=== PATIENT | male | born 1945 | race Caucasian/White ===

== ENCOUNTER → 2016-12-06 | Outpatient (CLI) | payer OTHER | LOC: RAD 12:06 | DX: R05 Cough (principal) ==

== ENCOUNTER → 2017-12-14 | Outpatient (CLI) | payer OTHER | LOC: CAT 09:30 | DX: J34.89 Other specified disorders of nose and nasal sinuses (principal); J44.9 Chronic obstructive pulmonary disease, unspecified ==

== ENCOUNTER → 2018-06-29 | Outpatient (CLI) | payer OTHER ==
[~2018-06-29] VITALS: Ht 172.7 cm; Wt 95.3 kg
[~2018-06-29] MED LIST: DYMISTA NASAL S23 GM NASAL; NEXIUM40 MG PO
--- NOTE | ~2018-06-29 | P ---
[facility] [place] [address] PROCEDURE REPORT Name: CHRIS PRICE Room #: REG [facility].#: [id number] Admission: 06/29/18 Attend Phys: Clint Phillips MD Discharge: Date of : 43 Report #: [id number] THIS REPORT FOR: //name// CC: Rakesh Antonio DO Clint Phillips BRIEF HISTORY: The patient is a 72-year-old male known to me with history of reflux disease. He has been taking Nexium 40 mg twice daily. Reports, he is having increasing symptoms. He has had intermittent solid food dysphagia and he has had previous esophageal dilation for that problem. PREOPERATIVE DIAGNOSIS: Worsening reflux symptoms and dysphagia. POSTOPERATIVE DIAGNOSES: 1. Grade A erosive esophagitis. 2. A small 2 cm sliding type hiatus hernia. 3. Intermittently seen Schatzki ring. 4. Moderately diffuse gastritis without ulceration. MEDICATIONS: Deep sedation with propofol per Anesthesia. SPECIMEN: Biopsies of gastritis. ESTIMATED BLOOD LOSS: 3 mL. PROCEDURE: EGD with biopsy, Barrett dilation. FINDINGS: Prior to propofol sedation, procedure of upper endoscopy discussed with the patient as well as potential risks and its complications. He indicates he understands and desires to proceed. DESCRIPTION OF PROCEDURE: With the patient in left decubitus position, the Olympus video endoscope was inserted in cervical esophagus under direct vision without difficulty. Examination of this organ through its entire length revealed normal esophageal mucosa down the squamocolumnar junction. At the level of squamocolumnar junction, he has a couple of small erosions limited to squamocolumnar junction. This is significant in view of the fact he is taking PPI. No strictures or masses were seen. Intermittently, a mild Schatzki ring was seen. Also, intermittently a 2 cm or less a sliding type hiatus hernia was noted. Scope was advanced in the stomach, was examined on end view as well as retroflexed views. He had moderate to severe erythematous antral gastritis with multiple prominent striations in the antrum. No ulcers were seen. The mucosa was intact. Upon retroflexion, no mass lesions were seen. The hiatus hernia was seen. The pylorus, duodenal bulb, and postbulbar duodenal sweep were all inspected and noted to be unremarkable. At that point, scope was slowly withdrawn and careful circumferential views were obtained and confirmed the [facility] [address] [place] [address] PROCEDURE REPORT Name: CHRIS PRICE Lasha Room #: REG JUANA Gaines#: [id number] Admission: 06/29/18 Attend Phys: Clint Phillips MD Discharge: Date of : 43 Report #: [id number] above findings. The patient tolerated the procedure well. Biopsies obtained of the gastritis. Following procedure, he was dilated with passage of 52-Martiniquais Barrett dilator. There was no resistance. CONDITION OF THE PATIENT UPON DISCHARGE: Following the procedure, the patient was drowsy. He is prepared for colonoscopy. INSTRUCTIONS TO THE PATIENT AND FAMILY AT THE TIME OF DISCHARGE: We will have him change his Nexium to Dexilant 60 mg daily. If he is not having improvement in symptoms, he should return to the office for followup. He should return for dilation of esophagus on an as-needed basis due to recurrence symptoms of dysphagia. He will otherwise follow up with Dr. Rakesh Antonio. By: [id number] Clint Phillips MD /nt
--- NOTE | ~2018-06-29 | P ---
[facility] [place] [address] PROCEDURE REPORT Name: CHRIS PRICE Room #: REG [facility]#: [id number] Admission: 06/29/18 Attend Phys: Clint Phillips MD Discharge: Date of : 43 Report #: [id number] THIS REPORT FOR: //name// CC: Rakesh Antonio DO Clint Phillips BRIEF HISTORY: The patient is a 72-year-old male with a history of multiple colon adenomas in the past. He presents today for high risk screening colonoscopy due to history of multiple colon adenomas. PREOPERATIVE DIAGNOSIS: High risk screening colonoscopy. POSTOPERATIVE DIAGNOSES: 1. Multiple colon polyps. 2. Moderately severe left-sided diverticulosis coli. 3. Moderate internal hemorrhoids. MEDICATIONS: Deep sedation with propofol per anesthesia. SPECIMENS: 1. Diminutive polyp, mid transverse colon x 2. 2. Diminutive polyp, cecum x 3. ESTIMATED BLOOD LOSS: 3 mL. PROCEDURE: Colonoscopy to cecum and terminal ileum with biopsy. FINDINGS: Prior to propofol sedation, procedure of colonoscopy discussed with the patient as well as potential risks and its complications. He indicates he understands and desires to proceed. DESCRIPTION OF PROCEDURE: With the patient in left lateral decubitus position, digital examination was completed, which revealed no abnormalities. Subsequently, the Olympus video colonoscope was introduced in the rectum, advanced under direct vision to the cecum. Done with minimal difficulty. The cecum was identified by the ileocecal valve and the appendiceal orifice. I was able to visualize the distal segment of the terminal ileum, which was inspected and noted to be unremarkable. At that point, the scope was slowly withdrawn and careful circumferential views were obtained including retroflexion of the scope in the ascending colon. Upon slow withdrawal of the scope, the prep was excellent. Mucosa was within normal limits, normal vascular pattern, normal light reflex. In the cecum, 3 diminutive polyps were seen and removed with biopsy forceps. The scope was further withdrawn in the mid ascending colon, 2 diminutive polyps were seen and removed with biopsy forceps. The scope was withdrawn through the remainder of the colon and no additional polyps were seen. The mucosa was normal through the remainder of the colon. However, in the left [facility] [address] [place] [address] PROCEDURE REPORT Name: CHRIS PRICE Lasha Room #: REG [facility].#: [id number] Admission: 06/29/18 Attend Phys: Clint Phillips MD Discharge: Date of : 43 Report #: [id number] colon he was noted to have mfxyieqn-qz-nnrini diverticular disease without endoscopic evidence of diverticulitis. Scope was withdrawn in the rectum and no abnormalities were seen. However, upon retroflexion, he was found to have moderate internal hemorrhoids. Scope withdrawn, the patient tolerated the procedure well. CONDITION OF THE PATIENT UPON DISCHARGE: Following procedure, the patient drowsy, aroused, conversant and will be discharged home when ambulatory. INSTRUCTIONS TO THE PATIENT AND FAMILY AT THE TIME OF DISCHARGE: A total of 5 polyps were identified and removed today. He has had at least 5 adenomas in the past. We will follow up on the path and make further recommendations. If 3 or more polyps are adenomas, he should return in 3 years; otherwise, he is to return for followup colonoscopy in 5 years. His last colonoscopy was in 04/2015. Withdrawal time from the cecum was 13 minutes and 5 seconds. By: 0945 1333 Clint Phillips MD /nt
--- NOTE | 2018-07-03 08:08 | PATH ---
[facility] [address] [place] [address] PATHOLOGY RPT PROCEDURE Name: CHRIS PRICE Room #: REG JUANA M.R.#: [id number] Admission: 06/29/18 Date of : 43 Discharge: Report #: [id number] Path Case #: [id number] [facility] Accession Number: [id number] . 01 Material submitted: . PART A: BX GASTRITIS PART B: BX POLYP AT MID TRANSVERSE COLON X2 PART C: BX POLYP AT CECUM X3 . 01 Clinical history: . Pre-OP DX: Hx polyps, GERD Post-OP DX: Schatzki's ring, gastritis, esophagitis, hiatal hernia, colon polyps, diverticulosis, hemorrhoids A. R/O H. pylori . 02 Diagnosis: A. Gastric mucosa, gastritis rule out H. pylori, endoscopic biopsy: - Mild reactive gastropathy. - Negative for intestinal metaplasia or atrophy. - Negative for Helicobacter pylori (properly controlled immunohistochemical stain performed). . B. Polyp x 2, mid transverse colon, endoscopic biopsy: - Both fragments showing tubular adenoma. - Negative for high grade dysplasia. . C. Polyp, at cecum, endoscopic biopsy: - Tubular adenoma. - Negative for high grade dysplasia. (IUV/db; 06/30/2018) LBQ/06/30/2018 . 02 Electronically signed: . Bharati Mccloud MD, Pathologist NPI- [id number] . 01 Gross description: . A. Received in formalin labeled "Ring, Chris, BX gastritis," are 4 segments of benavides soft tissue measuring 1.5 x 0.9 x 0.2 cm in aggregate dimensions and ranging from 0.3 to 0.5 cm in maximum dimension. The specimen is submitted entirely in cassette A1. . B. Received in formalin labeled "Ring, [place], BX polyp at mid transverse colon x2," are 2 segments of benavides soft tissue measuring 0.5 x 0.2 x 0.2 cm in aggregate dimensions and ranging from 0.2 to 0.3 cm in maximum dimension. The specimen is submitted entirely in cassette [place] [address] PATHOLOGY RPT PROCEDURE Name: IZABELA PRICEER R Room #: REG JUANA [facility].#: [id number] Admission: 06/29/18 Date of : 43 Discharge: Report #: [id number] Path Case #: [id number] C. Received in formalin labeled "Ring, [place], BX polyp at cecum," are 5 segments of benavides soft tissue measuring 2.0 x 1.0 x 0.2 cm in aggregate dimensions and ranging from 0.3 to 0.5 cm in maximum dimension. The specimen is submitted entirely in cassette C1. (TSD; 06/29/2018) TOB/TOB . 02 Pathologist provided ICD-10: K31.9, D12.3, D12.0 . 02 CPT . 894376, 886882, 152782, V88751 Specimen Comment: A courtesy copy of this report has been sent to Specimen Comment: [phone], . Specimen Comment: Report sent to / DR GONZALES Performed at: [address], [place] [id number] MD Roger Arizmendi MD Phone: [phone] Performed at: [address] [id number] MD Bharati Mccloud MD Phone: [phone]
== END | disposition home or self-care (01) ==
LOC: GI 06:40
DX: Z12.11 Encounter for screening for malignant neoplasm of colon (principal); Z86.010 Personal history of colon polyps; D12.0 Benign neoplasm of cecum; D12.3 Benign neoplasm of transverse colon; K31.9 Disease of stomach and duodenum, unspecified; K57.30 Diverticulosis of large intestine without perforation or abscess without bleeding; K64.8 Other hemorrhoids; K29.70 Gastritis, unspecified, without bleeding; K22.2 Esophageal obstruction; K21.0 Gastro-esophageal reflux disease with esophagitis; K44.9 Diaphragmatic hernia without obstruction or gangrene; Z91.041 Radiographic dye allergy status; Z79.899 Other long term (current) drug therapy
CPT/HCPCS: 62110; 62900

== ENCOUNTER → 2018-06-30 | Outpatient (CLI) | payer OTHER | LOC: ULTRA 10:53 | DX: K80.20 Calculus of gallbladder without cholecystitis without obstruction (principal); K76.0 Fatty (change of) liver, not elsewhere classified ==

== ENCOUNTER 2018-07-12 05:58 | Day surgery (SDC) | payer OTHER ==
[~2018-07-12] VITALS: Ht 172.7 cm; Wt 94.3 kg
[~2018-07-12 05:58] MED LIST changes: +DEXILANT60 MG PO
[2018-07-12 09:03] LABS: HEMATOCRIT 44.2 % (42.0-52.0); HEMOGLOBIN 14.7 gm/dL (14.0-18.0)
--- NOTE | 2018-07-12 09:48 | EKG ---
[place] [address] [facility] [employer] [place] [address] ELECTROCARDIOGRAM REPORT Name: CHRIS PRICE Room #: [address] [place] [address].#: [id number] ������������������ Admission: 07/12/18 ������������������ Attend Phys: Jc Alberts Discharge: ������������������ Date of : 43 Report #: [id number] ����������������������������������������������������������������� [id number] THIS REPORT FOR: //name// [facility] Test Date: 2018-07-12 Test Time: 08:52:40 Pat Name: CHRIS PRICE Department: Room: [facility] 3 Gender: M Neurophysiologist: IRENE : 1945 Requested By: Jc Gutiérrez Order Number: [id number] MD: Delio Bettencourt Measurements Intervals Bradshaw Rate: 68 P: 2 MT: 174 QRS: -49 QRSD: 89 T: 21 QT: 381 QTc: 406 Interpretive Statements Sinus rhythm Left anterior fascicular block Low voltage, extremity leads Abnormal R-wave progression, late transition Compared to ECG 02/22/2006 09:52:30 No significant change was found Electronically Signed On 07-12-2018 9:47:48 COLLAR POINTER by Delio Bettencourt [email or web address] ��������������������������������������������� <ELECTRONICALLY SIGNED> ���������������������������������������� By: Delio Bettencourt MD, [facility] ��������������������������������������������� 07/12/18 0947 [id number] Delio Bettencourt MD, [facility] /EPI
[2018-07-12] MEDS ORDERED: NORCO 5-325 TA1 EACH PO (12:09)
[2018-07-12] MEDS ORDERED: ONDANSETRON HCL4 M2 PO (12:09)
[2018-07-12] MEDS ORDERED: MIRALAX17 GM PO (12:09)
== END 2018-07-12 14:25 | disposition home or self-care (01) ==
LOC: OR 05:58 → TBA 05:59 → OR 12:48
PROVIDERS: Surgery
DX: K80.00 Calculus of gallbladder with acute cholecystitis without obstruction (principal); K21.9 Gastro-esophageal reflux disease without esophagitis; Z90.49 Acquired absence of other specified parts of digestive tract; Z98.890 Other specified postprocedural states; Z98.41 Cataract extraction status, right eye; Z98.42 Cataract extraction status, left eye; Z79.899 Other long term (current) drug therapy; Z87.19 Personal history of other diseases of the digestive system; Z96.691 Finger-joint replacement of right hand; Z91.041 Radiographic dye allergy status; Z79.891 Long term (current) use of opiate analgesic; Z87.891 Personal history of nicotine dependence
CPT/HCPCS: 50010; 50101; 50249; 50411; 50555; 50558; 50962; 51489; 51975; 52265; 53307; 53310; 54022; 54118; 55245; 55317; 56462; 56525; 56526; 62110; 62900; 70005

== ENCOUNTER → 2018-08-15 | Outpatient (CLI) | payer OTHER ==
[~2018-08-15] MED LIST changes: +MIRALAX17 GM PO; +NORCO 5-325 TA1 EACH PO; +ONDANSETRON HCL4 M2 PO
== END ==
LOC: CAT 15:04
DX: Z13.6 Encounter for screening for cardiovascular disorders (principal); E78.00 Pure hypercholesterolemia, unspecified; I25.10 Atherosclerotic heart disease of native coronary artery without angina pectoris

== ENCOUNTER → 2019-12-12 | Outpatient (CLI) | payer OTHER | LOC: SJCVC 12:16 | PROVIDERS: ATTEND Internal Medicine Cardiovascular Disease | DX: R93.1 Abnormal findings on diagnostic imaging of heart and coronary circulation (principal); E78.00 Pure hypercholesterolemia, unspecified; G47.33 Obstructive sleep apnea (adult) (pediatric); J44.9 Chronic obstructive pulmonary disease, unspecified; K21.9 Gastro-esophageal reflux disease without esophagitis; Z79.899 Other long term (current) drug therapy; Z82.49 Family history of ischemic heart disease and other diseases of the circulatory system; Z87.891 Personal history of nicotine dependence ==

== ENCOUNTER → 2020-01-10 | Outpatient (CLI) | payer OTHER | LOC: RAD 09:08 | PROVIDERS: ATTEND Pediatrics | DX: R06.02 Shortness of breath (principal) ==

== ENCOUNTER 2021-01-01 15:34 | Emergency (ER) | payer OTHER, MEDICARE ==
[~2021-01-01] VITALS: Ht 172.7 cm; Wt 97.5 kg
[2021-01-01] MEDS ORDERED: DOXYCYCLINE 10100 MG PO (19:08)
[2021-01-01 19:16] VITALS: BP 136/73
[2021-01-02] MEDS ORDERED: NEXIUM40 M2 PO (20:30)
== END 2021-01-01 19:16 | disposition home or self-care (01) ==
LOC: ER 15:34
DX: U07.1 COVID-19 (principal); R05 Cough; R06.02 Shortness of breath; Z90.49 Acquired absence of other specified parts of digestive tract; Z90.89 Acquired absence of other organs; Z98.890 Other specified postprocedural states; K21.9 Gastro-esophageal reflux disease without esophagitis; Z79.891 Long term (current) use of opiate analgesic; Z79.899 Other long term (current) drug therapy; Z91.041 Radiographic dye allergy status; Z91.013 Allergy to seafood; Z87.891 Personal history of nicotine dependence

== ENCOUNTER 2021-01-01 22:08 | Inpatient (IN) | payer OTHER, MEDICARE ==
[~2021-01-01] VITALS: Ht 172.7 cm; Wt 90.0 kg
[~2021-01-01 22:08] MED LIST changes: +DOXYCYCLINE 10100 MG PO
[2021-01-01 22:09] VITALS: BP 116/69
[2021-01-01 22:29] LABS: HEMATOCRIT 40.1 % (42.0-52.0); HEMOGLOBIN 13.2 gm/dL (14.0-18.0); MCH 27.9 pg (26.0-34.0); MCHC 32.8 g/dL (28.0-37.0); MCV 84.8 fL (80.0-100.0); PLATELET COUNT 190 thou/uL (150-400); RBC 4.73 mil/uL (4.50-6.00); RDW 14.9 % (10.5-14.5); WBC 10.7 thou/uL (4.0-11.0)
[2021-01-01 22:42] LABS: ANION GAP 9 mmol/L (7-16); BUN 17 mg/dL (7-18); CALCIUM 8.3 mg/dL (8.5-10.1); CHLORIDE 100 mmol/L (98-107); CO2 27 mmol/L (21-32); CREATININE 1.1 mg/dL (0.7-1.3); GLUCOSE 103 mg/dL (74-106); POTASSIUM 4.2 mmol/L (3.5-5.1); SODIUM 136 mmol/L (136-145)
[2021-01-01 22:52] LABS: ALBUMIN 3.2 g/dL (3.4-5.0); SGOT 50 U/L (15-37); SGPT 58 U/L (30-65); TOTAL BILIRUBIN 0.5 mg/dL (0.2-1.0); TROPONIN-I <0.06 ng/mL (<0.06)
[2021-01-01 23:52] LABS: ABSOLUTE NEUTROPHILS 8.8 thou/uL (1.4-8.2); METAMYELOCYTES 1 %; NUCLEATED RBCS 1 /100WBC
[2021-01-02] VITALS (11 sets, daily range): BP systolic 110–141; BP diastolic 63–84
--- NOTE | 2021-01-02 04:17 | NUR ---
PT TRANSFERRED INTO ROOM 23 AT APPROXIMATELY 0130. ALERT AND ORIENT TIMES THREE. 3-4 LITERS OF OXYGEN PER NASAL CANULA. VVS, AFEBRILE. ABLE TO TRANSFER WITH SBA. REQUESTED SLEEP AID, RR ONLY 7, NO SLEEP AID WAS GIVEN. SR/SB PER MONITOR. COVID + PROTOCOL FOLLOWED. WILL CONTINUE TO MONITOR.
--- NOTE | 2021-01-02 17:41 | NUR ---
75 year old male presents to the ED on 01-02-21 with worsening cough and shortness of breath. Pt was diagnosed with Covid . Pt is fully vaccinated against Covid with [employer]. ID NOW in the ED reveals positive. He does have history of lung disease and uses an albuterol as needed, states he's used it about twice per day recently. Prior to this illness he had not needed it for probably 8-9 months. Does not use an inhaled steroid. The patient has been admitted with Acute hypoxic respiratory failure, COVID-19 pneumonia, GERD/IBS, and MIGUEL. At present the patient is on 5L via NC and maintain 02 sats over 92%. Per ED nursing patient is able to transfer with SBA. CM did request a PT/OT evaluation while in the ED. The patient currently lives at home with his Arturo at [phone] or [phone]. Anticipate once medical assessments completed and plan of care is established that patient may be able to discharge home with spouse and have asked that internal medicine place an order for PT/OT to evaluate as O2 evaluation will require a RT assessment of a rest and exercise oximetry to determine any 02 needs at discharge. CM will continue to follow for discharge needs.
[2021-01-02] MEDS ORDERED: NEXIUM40 M2 PO (20:30)
[2021-01-02 21:47] LABS: ABSOLUTE NEUTROPHILS 6.1 thou/uL (1.4-8.2); BASOPHILS 0.1 % (0.0-2.0); HEMATOCRIT 40.6 % (42.0-52.0); HEMOGLOBIN 13.5 gm/dL (14.0-18.0); LYMPHOCYTES 7.7 % (24.0-44.0); MCH 28.2 pg (26.0-34.0); MCHC 33.2 g/dL (28.0-37.0); MCV 84.9 fL (80.0-100.0); MONOCYTES 8.2 % (1.0-8.0); PLATELET COUNT 201 thou/uL (150-400); RBC 4.79 mil/uL (4.50-6.00); RDW 14.7 % (10.5-14.5); WBC 7.2 thou/uL (4.0-11.0)
[2021-01-03 00:17] VITALS: BP 119/74
[2021-01-03 04:56] VITALS: BP 153/129
[2021-01-03 05:12] LABS: ABSOLUTE NEUTROPHILS 5.4 thou/uL (1.4-8.2); BASOPHILS 0.1 % (0.0-2.0); HEMATOCRIT 39.8 % (42.0-52.0); HEMOGLOBIN 13.8 gm/dL (14.0-18.0); LYMPHOCYTES 11.8 % (24.0-44.0); MCH 29.1 pg (26.0-34.0); MCHC 34.7 g/dL (28.0-37.0); MCV 84.1 fL (80.0-100.0); MONOCYTES 8.9 % (1.0-8.0); PLATELET COUNT 209 thou/uL (150-400); POLYS 79.2 % (36.0-66.0); RBC 4.73 mil/uL (4.50-6.00); RDW 14.7 % (10.5-14.5); WBC 6.8 thou/uL (4.0-11.0)
[2021-01-03 05:26] LABS: INR 1.14; PROTIME 12.4 Seconds (10.5-12.1)
[2021-01-03 05:41] LABS: ALBUMIN 2.9 g/dL (3.4-5.0); CALCIUM 7.9 mg/dL (8.5-10.1); POTASSIUM 4.3 mmol/L (3.5-5.1); TOTAL BILIRUBIN 0.5 mg/dL (0.2-1.0); TOTAL PROTEIN 6.4 g/dL (6.4-8.2)
[2021-01-03 05:47] LABS: DIRECT BILIRUBIN 0.1 mg/dL (<0.1-0.2); PHOSPHORUS 3.7 mg/dL (2.5-4.9)
--- NOTE | 2021-01-03 07:40 | NUR ---
PROGRESS PT A/O X4 UP AD ZAINAB IV ON 4 LITERS O2 SATS IN MID 90'S. SL TO RF AND RAC FLUSHES WITHOUT DIFFICULTY. MEDS GIVEN ORDERED NO SIDE EFFECTS NOTED FROM BARICITINIB PT INFORMATION SHEET PROVIDED AND REVIEWED, VOIDING QS CONTINUE POC.
[2021-01-03 08:00] VITALS: BP 114/68
[2021-01-03 15:53] VITALS: BP 112/71
--- NOTE | 2021-01-03 18:12 | NUR ---
PT WAS UP IN CHAIR MOST OF THE DAY WHILE ON 9L 02 AT 93%. VSS. PT VOIDS VIA URINAL. FOLLOWING COVID POC.
[2021-01-03 20:29] VITALS: BP 124/84
[2021-01-04 03:42] VITALS: BP 117/58
[2021-01-04 05:08] LABS: ABSOLUTE NEUTROPHILS 5.3 thou/uL (1.4-8.2); BASOPHILS 0.1 % (0.0-2.0); HEMOGLOBIN 13.4 gm/dL (14.0-18.0); LYMPHOCYTES 14.8 % (24.0-44.0); MCH 28.1 pg (26.0-34.0); MCHC 33.5 g/dL (28.0-37.0); MCV 83.8 fL (80.0-100.0); MONOCYTES 12.9 % (1.0-8.0); PLATELET COUNT 253 thou/uL (150-400); POLYS 72.2 % (36.0-66.0); RBC 4.78 mil/uL (4.50-6.00); RDW 14.4 % (10.5-14.5); WBC 7.3 thou/uL (4.0-11.0)
[2021-01-04 05:36] LABS: ALBUMIN 2.7 g/dL (3.4-5.0); CALCIUM 8.2 mg/dL (8.5-10.1); CREATININE 0.9 mg/dL (0.7-1.3); DIRECT BILIRUBIN 0.1 mg/dL (<0.1-0.2); PHOSPHORUS 3.6 mg/dL (2.5-4.9); POTASSIUM 4.2 mmol/L (3.5-5.1); TOTAL BILIRUBIN 0.4 mg/dL (0.2-1.0); TOTAL PROTEIN 6.4 g/dL (6.4-8.2)
[2021-01-04 08:00] VITALS: BP 114/78
[2021-01-04 12:35] VITALS: BP 108/63
[2021-01-04 16:00] VITALS: BP 123/85
--- NOTE | 2021-01-04 17:33 | NUR ---
PT REQUESTED NAUSEA MEDICATION X2 OVER SHIFT. IVPB ANTIBIOTICS PER POC. 9L TO MAINTAIN 02 SATURATION. SPOKE TO PT TODAY AND ANSWERED HER QUESTIONS.
[2021-01-04 19:12] VITALS: BP 121/67
--- NOTE | 2021-01-04 19:53 | NUR ---
PT RESTING IN BED WATCHING TV TALKING ON PHONE. REPORTS HEADACHE CONTINUED AND PROVIDED COFFEE. PRN FOR SLEEP WILL BE PROVIDED. PT REPORTING GAS AND BELCHING. LUNGS WITH CRACKLES LOWER BASES. O2 15L NC. FLUSHED SKIN TONE. CALLS FOR ASSISTANCE NEEDED.
[2021-01-05 04:39] VITALS: BP 128/67
[2021-01-05 05:27] LABS: ABSOLUTE NEUTROPHILS 5.4 thou/uL (1.4-8.2); BASOPHILS 0.1 % (0.0-2.0); HEMATOCRIT 40.7 % (42.0-52.0); HEMOGLOBIN 13.5 gm/dL (14.0-18.0); LYMPHOCYTES 12.5 % (24.0-44.0); MCH 27.9 pg (26.0-34.0); MCHC 33.1 g/dL (28.0-37.0); MCV 84.3 fL (80.0-100.0); MONOCYTES 9.7 % (1.0-8.0); PLATELET COUNT 283 thou/uL (150-400); POLYS 77.7 % (36.0-66.0); RBC 4.83 mil/uL (4.50-6.00); RDW 14.9 % (10.5-14.5)
[2021-01-05 05:33] LABS: ALBUMIN 2.6 g/dL (3.4-5.0); CALCIUM 8.1 mg/dL (8.5-10.1); DIRECT BILIRUBIN 0.1 mg/dL (<0.1-0.2); PHOSPHORUS 4.2 mg/dL (2.5-4.9); POTASSIUM 4.6 mmol/L (3.5-5.1); TOTAL BILIRUBIN 0.5 mg/dL (0.2-1.0); TOTAL PROTEIN 6.3 g/dL (6.4-8.2)
[2021-01-05 07:25] VITALS: BP 125/84
--- NOTE | 2021-01-05 13:21 | NUR ---
INITIAL ASSESSMENT: SW reviewed chart and spoke with nursing and attending physician. Pt was admitted from home due to COVID pneumonia. Pt placed in Enhanced Isolation. Pt did receive the [employer] COVID vaccine. Pt is afebrile and was on 15L of O2 this morning. Pt is currently on 6L. Pt is on IV abx and IV steroids. Remdesivir and Baricitinib started. SW spoke with pt via phone. Introduced role of SW. Pt is alert/orientated x 4. Pt reports he lives at home with his , who also has COVID. Prior to admission, pt was independent with ADLs. No use of DME. No hx of HH services or post-acute placement. Pt's PCP is Dr. Rakesh Antonio. Pt states he was told that he will discharge home tomorrow. SW explained to pt that he may need home O2 and/or HH services. Pt is agreeable with plan. Pt will need a rest/exercise oximetry to determine home O2 needs. SW is following to assist as needed with discharge planning.
[2021-01-05 15:07] VITALS: BP 119/71
[2021-01-05 17:06] LABS: HIV ANTIBODY Non Reactive (Non Reactive)
--- NOTE | 2021-01-05 18:34 | NUR ---
SPOKE TO PT AND DAUGHTER. PT WAS PROGRESSING TO DC GOALS AND SHE IS WORRIED FOR HIM TO DC HOME. LAST TIME PT HAD PNA AND WAS DC'D 4 DAYS LATER, HE RETURNED TO THE HOSPITAL TWO DAYS LATER WITH INCREASED SYSTEMS.
[2021-01-05 19:33] VITALS: BP 126/78
--- NOTE | 2021-01-05 21:45 | NUR ---
PT UP IN CHAIR. O2 PER NC. LUNGS WITH CRAKCLES. PT WANTS TO DC HOME, HE STATED ID SAID O2 HAS TO BE BELOW 5L. PT BELCHING. DUSKY SKIN TONE. STEADY GAIT, INDEPENDENT.
[2021-01-06 02:45] VITALS: BP 124/74
[2021-01-06 05:20] LABS: ABSOLUTE NEUTROPHILS 6.3 thou/uL (1.4-8.2); HEMATOCRIT 40.6 % (42.0-52.0); HEMOGLOBIN 13.6 gm/dL (14.0-18.0); LYMPHOCYTES 9.8 % (24.0-44.0); MCHC 33.5 g/dL (28.0-37.0); MCV 83.6 fL (80.0-100.0); MONOCYTES 8.7 % (1.0-8.0); PLATELET COUNT 275 thou/uL (150-400); POLYS 81.5 % (36.0-66.0); RBC 4.86 mil/uL (4.50-6.00); RDW 14.4 % (10.5-14.5); WBC 7.7 thou/uL (4.0-11.0)
[2021-01-06 05:22] LABS: ALBUMIN 2.6 g/dL (3.4-5.0); CREATININE 0.9 mg/dL (0.7-1.3); DIRECT BILIRUBIN 0.2 mg/dL (<0.1-0.2); PHOSPHORUS 3.4 mg/dL (2.5-4.9); POTASSIUM 4.4 mmol/L (3.5-5.1); TOTAL BILIRUBIN 0.6 mg/dL (0.2-1.0); TOTAL PROTEIN 6.2 g/dL (6.4-8.2)
[2021-01-06 08:12] VITALS: BP 116/63
--- NOTE | 2021-01-06 15:16 | NUR ---
RENETTA reviewed chart and spoke with nursing and attending physician. Pt remains in Enhanced Isolation due to COVID. Pt is afebrile and on 6-7L of O2. Pt is on IV steroids and IV abx. Remdesivir to be completed today. Pt is on Baricitinib. RENETTA spoke with pt via phone to discuss discharge plan. Pt is not ready for discharge today. SW discussed the need for home O2 when ready for discharge. Options form DME companies provided. Pt is aware and agreeable with referral to [facility]. RENETTA verified pt's home address and phone number. Pt will think about home health. SW offered to contact his to provide update. Pt states he keeps her and family updated. SW faxed home O2 referral to [facility]. Notified [facility] liaison. Will need rest/exercise oximetry completed. RENETTA is following to assist as needed with discharge planning.
[2021-01-06 15:30] VITALS: BP 122/82
--- NOTE | 2021-01-06 17:54 | NUR ---
PT IS PROGRESSING TOWARDS POC. ON 6L OF OXYGEN, SOB WITH EXERTION USES URINAL AND BSC. ENHANCED PRECAUTION IN PLACE. DENIES ANY NEEDS AT MOMENT.
[2021-01-06 19:41] VITALS: BP 115/79
--- NOTE | 2021-01-06 22:53 | NUR ---
PT UP IN CHAIR. O2 PER NC. LUNGS CRACKLES IN BASES. DUSKY SKIN TONE. PT PROVIDED HS SNACK. IVF INTACT. CALLS FOR ASSISTANCE.
[2021-01-07 03:14] LABS: ABSOLUTE NEUTROPHILS 6.9 thou/uL (1.4-8.2); BASOPHILS 0.2 % (0.0-2.0); HEMATOCRIT 40.8 % (42.0-52.0); HEMOGLOBIN 13.7 gm/dL (14.0-18.0); MCH 28.2 pg (26.0-34.0); MCHC 33.6 g/dL (28.0-37.0); MCV 83.8 fL (80.0-100.0); MONOCYTES 10.2 % (1.0-8.0); PLATELET COUNT 329 thou/uL (150-400); POLYS 80.6 % (36.0-66.0); RBC 4.87 mil/uL (4.50-6.00); RDW 14.4 % (10.5-14.5); WBC 8.6 thou/uL (4.0-11.0)
[2021-01-07 03:39] LABS: ALBUMIN 2.6 g/dL (3.4-5.0); ANION GAP 7 mmol/L (7-16); BUN 21 mg/dL (7-18); CALCIUM 7.9 mg/dL (8.5-10.1); CHLORIDE 98 mmol/L (98-107); CO2 29 mmol/L (21-32); CREATININE 0.9 mg/dL (0.7-1.3); DIRECT BILIRUBIN < 0.1 mg/dL (<0.1-0.2); GLUCOSE 142 mg/dL (74-106); PHOSPHORUS 3.8 mg/dL (2.5-4.9); POTASSIUM 4.7 mmol/L (3.5-5.1); SGOT 26 U/L (15-37); SGPT 61 U/L (30-65); SODIUM 134 mmol/L (136-145); TOTAL BILIRUBIN 0.5 mg/dL (0.2-1.0); TOTAL PROTEIN 6.3 g/dL (6.4-8.2)
[2021-01-07 04:11] VITALS: BP 114/67
--- NOTE | 2021-01-07 14:03 | NUR ---
RENETTA reviewed chart and spoke with nursing and attending physician. Pt remains in Enhanced Isolation due to COVID. Pt is afebrile and requiring 6L of O2. Pt is on IV abx and IV steroids. Pt is on Remdesivir and Baricitinib. Pulmonology consulted. RENETTA spoke with pt's via phone. Introduced role of SW. Provided update and answered questions. Pt's states that she knows pt will most likely need to be discharged home on O2. RENETTA also discussed HH services. Pt's is agreeable with HH referral. SW confirmed pt's home address and phone number. Options for HH and Home O2 companies provided. No preference voiced. RENETTA faxed HH referral to [facility] . Notified liaison of new referral. RENETTA faxed home O2 referral to [facility]. Notified [facility] liaison. Unsure of discharge timeframe. Working on getting O2 requirements down. Contact info for RENETTA provided to pt's . Plan is for pt to discharge home when medically stable. RENETTA is following to assist as needed with discharge planning.
--- NOTE | 2021-01-07 15:10 | NUR ---
CARE ASSUMED THIS AM, PT ALERT AND ORIENTED X4. DENIES CHEST PAIN, NAUSEA AND VOMITTING. ON 5L OF OXYGEN, SOB WITH EXERTION. PT HAS BEEN ENCOURAGE TO USE THE INCENTIVE SPIROMETER. DENIES ANY NEEDS CLARISA, WILL CONTINUE TO MONITOR
[2021-01-07 16:58] VITALS: BP 105/63
[2021-01-07 19:42] VITALS: BP 116/76
--- NOTE | 2021-01-07 22:03 | NUR ---
PT AWAKE RESTING IN BED. PT HAS HS SNACK FROM HOME. O2 PER NC. LUNGS WITH CRACKLES IN BASES. PT VERBALIZING HOPE FOR DC TO HOME SOON. PT CALLS FOR ASSISTANCE.
[2021-01-08 03:11] LABS: HEMATOCRIT 39.6 % (42.0-52.0); HEMOGLOBIN 13.3 gm/dL (14.0-18.0); MCH 28.3 pg (26.0-34.0); MCHC 33.6 g/dL (28.0-37.0); MCV 84.1 fL (80.0-100.0); PLATELET COUNT 324 thou/uL (150-400); RBC 4.71 mil/uL (4.50-6.00); RDW 14.3 % (10.5-14.5); WBC 10.2 thou/uL (4.0-11.0)
[2021-01-08 03:51] LABS: ALBUMIN 2.5 g/dL (3.4-5.0); DIRECT BILIRUBIN 0.1 mg/dL (<0.1-0.2); PHOSPHORUS 3.4 mg/dL (2.5-4.9); POTASSIUM 4.7 mmol/L (3.5-5.1); TOTAL BILIRUBIN 0.3 mg/dL (0.2-1.0); TOTAL PROTEIN 5.9 g/dL (6.4-8.2)
[2021-01-08 04:32] VITALS: BP 118/71
[2021-01-08 07:43] VITALS: BP 122/76
[2021-01-08 08:38] LABS: ABSOLUTE NEUTROPHILS 8.7 thou/uL (1.4-8.2); METAMYELOCYTES 2 %; MYELOCYTES 1 %
[2021-01-08 08:39] LABS: ANISOCYTOSIS SLIGHT
--- NOTE | 2021-01-08 12:32 | NUR ---
PT IS PROGRESSING TOWARDS PLAN OF CARE, CURRENTLY ON 3L OXYGEN. SOB WITH EXERTION. USES URINAL. PT HASNT HAD BM FOR A COUPLE DAY, STATED IT NORMAL. ANTICIPATING FOR DISCHARGE SOON. DENIES ANY NEEDS CLARISA, WILL CONTINUE TO MONITOR
--- NOTE | 2021-01-08 13:28 | NUR ---
Assess d/t early LOS; day 6. Pt admitted with hypoxic respiratory ditress r/t covid 19. On covid protocol. Respiratory s/s impvroving, intakes good on heart healthy diet. Physician documents PCM, defer dx. Wt loss indicated, if accurate, 15# since admit, use of diuretic. Monitor weight and intake trends. Low nutrition risk at this time.
[2021-01-08 14:41] LABS: T-SPOT.TB Negative
[2021-01-08 19:04] VITALS: BP 123/89
[2021-01-08 19:30] VITALS: BP 92/55
[2021-01-09 04:21] VITALS: BP 96/61
[2021-01-09 07:24] LABS: HEMATOCRIT 43.5 % (42.0-52.0); HEMOGLOBIN 14.9 gm/dL (14.0-18.0); MCH 28.7 pg (26.0-34.0); MCHC 34.2 g/dL (28.0-37.0); PLATELET COUNT 362 thou/uL (150-400); RBC 5.17 mil/uL (4.50-6.00); RDW 14.7 % (10.5-14.5); WBC 10.1 thou/uL (4.0-11.0)
[2021-01-09 07:32] VITALS: BP 113/78
[2021-01-09 07:40] LABS: CALCIUM 8.7 mg/dL (8.5-10.1); DIRECT BILIRUBIN 0.2 mg/dL (<0.1-0.2); PHOSPHORUS 4.5 mg/dL (2.5-4.9); POTASSIUM 5.5 mmol/L (3.5-5.1); TOTAL BILIRUBIN 0.6 mg/dL (0.2-1.0)
[2021-01-09 07:50] LABS: D-DIMER 0.19 ug/mLFEU (0.19-0.50); INR 1.17; PROTIME 12.7 Seconds (10.5-12.1)
[2021-01-09 10:05] LABS: ABSOLUTE NEUTROPHILS 8.1 thou/uL (1.4-8.2); ANISOCYTOSIS SLIGHT; ATYPICAL LYMPHS 1 %; BURR CELLS OCCASIONAL; MYELOCYTES 2 %; OVALOCYTES FEW; POIKILOCYTOSIS SLIGHT
[2021-01-09 14:11] VITALS: BP 113/78
--- NOTE | 2021-01-09 14:17 | NUR ---
RENETTA reviewed chart and spoke with nursing and attending physician. Pt remains in Enhanced Isolation due to COVID. Pt is progressing well towards goals for discharge. Weekend discharge anticipated. Pt currently is on room air. Will need a rest/exercise oximetry ordered prior to discharge to determine if pt needs home O2. RENETTA spoke with pt via phone. Discussed discharge plan. Pt is aware and in agreement with discharge plan. RENETTA informed pt that [facility] will provide HH services. RENETTA discussed possible need for home O2. Pt verbalized understanding and does not have a preference of a home O2 company. RENETTA faxed home O2 referral to [facility]. Notified [facility] liaison of new referral. Portable O2 tank to be brought to the hospital today, in case pt needs home O2 and is discharged over the weekend. RENETTA also spoke with pt's via phone to provide update. Provided name of HH and Home O2 providers. Pt's is agreeable with discharge plan. Pt's family will be able to provide transportation home. Contact info for and [facility] placed in pt's discharge summary. RENETTA notified [facility] liaison of weekend discharge. Final discharge ppwk will need to be faxed to . Rest/exercise oximetry test and script for O2 will need to be faxed to [facility], if home O2 is needed. RENETTA is following and available to assist as needed with discharge planning. [facility] -- [facility]--
--- NOTE | 2021-01-09 15:27 | NUR ---
PT ALERT AND ORIENTED TIMES FOUR. VSS. PT DENIES PAIN. PT TOLERATES MEDS AND MEALS. PT UP AB ZAINAB WITH STEADY GAIT TO THE BSC. PT PROGRESSING TOWRADS POC GOALS.
[2021-01-09 15:30] VITALS: BP 213/78
[2021-01-09 19:45] VITALS: BP 91/55
--- NOTE | 2021-01-10 03:22 | NUR ---
keeping o2 sats greater than 95%. he has been resting quietly. no concerns voiced. he is aware of the discharge plan for the weekend.
[2021-01-10 05:23] VITALS: BP 90/55
[2021-01-10 05:27] LABS: ALBUMIN 2.7 g/dL (3.4-5.0); CALCIUM 8.4 mg/dL (8.5-10.1); CREATININE 1.1 mg/dL (0.7-1.3); DIRECT BILIRUBIN 0.1 mg/dL (<0.1-0.2); PHOSPHORUS 3.7 mg/dL (2.6-4.7); TOTAL BILIRUBIN 0.6 mg/dL (0.2-1.0); TOTAL PROTEIN 6.1 g/dL (6.4-8.2)
[2021-01-10 05:35] LABS: ABSOLUTE NEUTROPHILS 9.2 thou/uL (1.4-8.2); BASOPHILS 0.1 % (0.0-2.0); EOSINOPHILS 0.4 % (0.0-3.0); HEMATOCRIT 42.4 % (42.0-52.0); HEMOGLOBIN 14.2 gm/dL (14.0-18.0); LYMPHOCYTES 15.1 % (24.0-44.0); MCHC 33.5 g/dL (28.0-37.0); MCV 83.7 fL (80.0-100.0); MONOCYTES 8.9 % (1.0-8.0); PLATELET COUNT 354 thou/uL (150-400); POLYS 75.5 % (36.0-66.0); RBC 5.07 mil/uL (4.50-6.00); RDW 14.5 % (10.5-14.5); WBC 12.2 thou/uL (4.0-11.0)
[2021-01-10 05:36] LABS: POTASSIUM 4.2 mmol/L (3.5-5.1)
[2021-01-10 07:43] VITALS: BP 95/61
[2021-01-10] MEDS ORDERED: PREDNISONE 20 M20 MG PO (08:37)
[2021-01-10] MEDS ORDERED: ASPIRIN EC325 M1 PO (08:38)
[2021-01-10] MEDS ORDERED: AUGMENTIN 875-1 EACH PO (08:43)
--- NOTE | 2021-01-10 14:42 | NUR ---
FAXED DISCHARGE ORDERS AND SUMMARY TO [facility]. RECEIVED FAX CONFIRMATION BUT MAIN OFFICE WAS CLOSED TO VERBALLY CONFIRM. FAXED REST/EXERCISE OXIMETRY TEST AND O2 SCRIPT TO [facility]. RECEIVED FAX CONFIMATION BUT MAIN OFFICE WAS CLOSED TO VERBALLY CONFIRM. CONTACTED SALMA/SON AT P [phone] TO GIVE FAMILY THE CONTACT INFORMATION FOR [facility] AND [facility]. HE STATED CONERNS OF PATIENT'S HAVING COVID FOR 2 WEEKS AND STILL TESTING POSITIVE BUT ASYMPTOMATIC. VERIFIED WITH WIL/RN THAT PATIENT WAS SAFE TO DISCHARGE HOME AND DIRECTED SON TO CONTACT RN BEFORE DISCHARGE REGARDING ADDITIONAL MEDICAL QUESTIONS. [facility] P [phone]; FAX [phone] [facility] P [phone]; FAX [phone]
--- NOTE | 2021-01-10 15:10 | NUR ---
RN ASSUMED PT'S CARE AT 0700-1500PM, PT IS A&OX4 , PT RESTARTED O2 2L/MIN/NC BY RT TEST, PT 'S O2SAT STAYS AT 92-96%, PT'S VS ARE STABLE, PT DENIES PAIN AND N/V, RN RECEIVED ORDER PT TO DC TO HOME WITH HOME HEALTH, RN HAS CALLED SW TO GET O2 TANK FOR PT , PT AND PT'S SON UNDERSTAND DC TEACHING WELL , 3 W SCRUBBER SYSTEM ATTENDANT SENT PT TO ER FRONT DOOR TO MEET PT'S SON AT 1500PM.
== END 2021-01-10 15:20 | disposition home health service (06) | DRG 177 ==
LOC: ER 22:08 → EROBS 01-02 00:22 → 3W 01-02 00:22 → EROBS 01-02 07:55 → 3W 01-02 18:37
PROVIDERS: Emergency Medicine; Nurse Practitioner Family; Specialist; ADMIT Hospitalist; ATTEND Hospitalist
PROC: XW033E5 Introduction of Remdesivir Anti-infective into Peripheral Vein, Percutaneous Approach, New Technology Group 5 (ICD-10-PCS; principal; 2021-01-02)
PROC: 5A0935A Assistance with Respiratory Ventilation, Less than 24 Consecutive Hours, High Flow/Velocity Cannula (ICD-10-PCS; 2021-01-05)
DX: U07.1 COVID-19 (principal); J12.82 Pneumonia due to coronavirus disease 2019; J96.21 Acute and chronic respiratory failure with hypoxia; E87.1 Hypo-osmolality and hyponatremia; E46 Unspecified protein-calorie malnutrition; K21.9 Gastro-esophageal reflux disease without esophagitis; J84.10 Pulmonary fibrosis, unspecified; R73.9 Hyperglycemia, unspecified; G47.33 Obstructive sleep apnea (adult) (pediatric); K58.9 Irritable bowel syndrome, unspecified; J44.9 Chronic obstructive pulmonary disease, unspecified; Z98.42 Cataract extraction status, left eye; Z98.41 Cataract extraction status, right eye; Z90.49 Acquired absence of other specified parts of digestive tract; Z79.899 Other long term (current) drug therapy; Z91.041 Radiographic dye allergy status; Z91.013 Allergy to seafood; Z87.891 Personal history of nicotine dependence; Z68.30 Body mass index [BMI] 30.0-30.9, adult
CPT/HCPCS: 10080

== ENCOUNTER → 2021-02-06 | Outpatient (CLI) | payer OTHER, MEDICARE ==
[~2021-02-06] MED LIST changes: +ASPIRIN EC325 M1 PO; +AUGMENTIN 875-1 EACH PO; +NEXIUM40 M2 PO; +PREDNISONE 20 M20 MG PO
== END ==
LOC: RAD 08:10
PROVIDERS: ATTEND Pediatrics
DX: R91.8 Other nonspecific abnormal finding of lung field (principal); R06.02 Shortness of breath